=== PATIENT | male | born 1955 | race Caucasian/White ===

== ENCOUNTER 2019-06-29 10:25 | Emergency (ER) | payer MEDICARE, OTHER ==
[~2019-06-29] VITALS: Ht 185.4 cm; Wt 70.9 kg
[2019-06-29 10:37] VITALS: Ht 185.4 cm; Wt 70.9 kg
[2019-06-29] MEDS ORDERED: KETOROLAC 15 MG INJ IV STA (10:40)
[2019-06-29] MEDS ORDERED: SOD CHLORIDE 0.9% 500 ML IV STA (10:40)
[2019-06-29 12:22] VITALS: BP 178/89; PULSE 80; RESP 12
== END 2019-06-29 12:22 | disposition home or self-care (01) ==
LOC: E/R 10:25
DX: R25.2 Cramp and spasm (principal); F17.210 Nicotine dependence, cigarettes, uncomplicated; Z21 Asymptomatic human immunodeficiency virus [HIV] infection status
CPT/HCPCS: 36415; 80048; 85025; 96374; 99284; J1885; J7040